=== PATIENT | male | born 1935 | race Caucasian/White ===

== ENCOUNTER → 2016-11-05 | Outpatient (CLI) | payer BC ==
[~2016-11-05] MED LIST: GADOBUTROL 10 ML VIAL IVP ONE
--- NOTE | 2016-11-05 13:31 | MR ---
MRI of the Head (Before and Following Gadolinium) Clinical Indications: Abnormal gait. Facial weakness. Technique: T1-weighted images were obtained sagittally and axially. Diffusion-weighted, inversion r ecovery, and fast T2-weighted axial images were obtained. T1-weighted axial and coronal images were obtained after intravenous administration of 10 mL of Gadavist. Findings: No hemorrhage, mass lesions or acute infarction. Ventricles and subarachnoid spaces are n ormal. The brain has normal signal with no evidence of neoplasm or demyelinating disease. Appropria te voids of signal are found within the major vessels of the [place]. Contents of the poste rior fossa are nicely displayed and normal. No fluid in the paranasal sinuses minimal white matter d isease is within normal limits for age.. No enhancing lesions are found. Impression: Normal MRI examination of the brain..
--- NOTE | 2016-11-05 13:34 | MR ---
MRI of the Lumbar Spine (Without Contrast) Clinical Indications: Abnormal gait. Weakness. Technique: Sagittal and axial T1 and T2 MR sequences of the lumbar spine without contrast. Findings L1-L2: No disk herniation or stenosis. L2-L3: Disk desiccation and diffuse annular bulging contributes to moderate acquired central canal st enosis. Neural foramina remain patent. L3-L4: Disk desiccation and diffuse annular bulging contributes to severe acquired central canal sten osis at this level with marked crowding and tethering of the cauda equina within the thecal space. Fa cet joints are degenerative and moderately hypertrophic. Foramina remain patent. L4-L5: Disk desiccation with diffuse annular bulging. Superimposed subligamentous central disk protru blanca with secondary severe acquired central canal stenosis and tethering of the cauda equina within t he thecal space. Neural foramina remain patent. L5-S1: Disk desiccation and diffuse annular bulging without significant acquired central canal stenos is. The neural foramina are mildly narrowed bilaterally. Impressions: 1. Multilevel lumbar degenerative disk disease, as detailed by level above. 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 Moderate acqu ired central canal narrowing at L2-L3. 2. Please see specific level findings above.
== END ==
LOC: FIMAGING 07:44
PROVIDERS: ATTEND Psychiatry & Neurology Neurology
DX: R29.810 Facial weakness (principal); M48.06 Spinal stenosis, lumbar region; M51.86 Other intervertebral disc disorders, lumbar region
CPT/HCPCS: A9585

== ENCOUNTER → 2018-02-22 | Outpatient (CLI) | payer BC | LOC: FIMAGING 10:00 | PROVIDERS: ATTEND Psychiatry & Neurology Neurology | DX: R43.0 Anosmia (principal) | CPT/HCPCS: A9585 ==

== ENCOUNTER → 2018-12-11 | Outpatient (CLI) | payer BC, OTHER | LOC: BMCIMAGING 16:10 | PROVIDERS: ATTEND Podiatrist Foot & Ankle Surgery | DX: M79.89 Other specified soft tissue disorders (principal); M24.875 Other specific joint derangements left foot, not elsewhere classified ==

== ENCOUNTER → 2019-03-16 | Outpatient (CLI) | payer BC, OTHER | LOC: BMCIMAGING 14:39 ==

== ENCOUNTER → 2019-04-03 | Outpatient (CLI) | payer BC, OTHER | LOC: FIMAGING 09:50 ==